=== PATIENT | male | born 1940 | race Caucasian/White ===

== ENCOUNTER → 2017-01-02 | Outpatient (CLI) | payer MEDICARE ==
--- NOTE | 2017-01-02 15:35 | US ---
EXAMINATION TYPE: US carotid duplex BILAT DATE OF EXAM: 01/02/2017 COMPARISON: NONE CLINICAL HISTORY: R42 DIZZINESS. Increased dizziness when sitting up from reclining position EXAM MEASUREMENTS: RIGHT: Peak Systolic Velocity (PSV) cm/sec ----- Right CCA: 87.6 ----- Right ICA: 96.3 ----- Right ECA: 140 ICA/CCA ratio: 1.1 RIGHT: End Diastole cm/sec ----- Right CCA: 27.3 ----- Right ICA: 21.1 ----- Right ECA: 24.3 LEFT: Peak Systolic Velocity (PSV) cm/sec ----- Left CCA: 105 ----- Left ICA: 106 ----- Left ECA: 136 ICA/CCA ratio: 1.0 LEFT: End Diastole cm/sec ----- Left CCA: 25.8 ----- Left ICA: 44.7 ----- Left ECA: 19.6 VERTEBRALS (direction of flow): Right Vertebral: Antegrade Left Vertebral: Antegrade 1. Minimal changes. 2. No elevated velocities in either ICA. 3. No significant stenosis. IMPRESSION: I DO NOT SEE EVIDENCE OF A HEMODYNAMICALLY SIGNIFICANT STENOSIS IN EITHER CAROTID SYSTEM. Criteria for Assigning % of Stenosis / Diameter reduction (Estimation based on the indirect measurements of the internal carotid artery velocities (ICA PSV). 1. Normal (no stenosis)=ICA PSV < 125 cm/s: ratio < 2.0: ICA EDV<40 cm/s. 2. Less than 50% stenosis=ICA PSV < 125 cm/s: ratio < 2.0: ICA EDV<40 cm/s. 3. 50 to 69% stenosis=ICA PSV of 125 to 230 cm/s: ration 2.0 ? 4.0: ICA EDV 40-100 cm/s. 4. Greater than 70% stenosis to near occlusion= ICA PSV > 230 cm/s: ratio > 4.0: ICA EDV > 100 cm/s. 5. Near occlusion= ICA PSV velocities may be low or undetectable: variable ratio and ICA EDV. 6. Total occlusion=unable to detect flow.
== END | disposition home or self-care (01) ==
LOC: RADUSWWP 14:31
PROVIDERS: ATTEND Family Medicine
DX: R42 Dizziness and giddiness (principal)
CPT/HCPCS: 93880